=== PATIENT | male | born 1995 | race Asian ===

== ENCOUNTER 2018-06-06 15:34 | Emergency (ER) | payer OTHER, MEDICAID, SELFPAY ==
[2018-06-06 16:10] VITALS: BP 133/71; PULSE 74; RESP 16; TEMP 37.3; O2SAT 98; BMI 30.4
[2018-06-06 17:12] LABS: Add Manual Diff / Slide Review NO; Basophils Absolute Auto 100 /uL (0-100); Basophils Percent Auto 0.5 % (0-2); Eosinophils Absolute Auto 500 /uL (0-450); Hematocrit 45.7 % (41-53); Hemoglobin 14.5 g/dL (13.5-17.5); Lymphocytes Absolute Auto 1200 /uL (1100-4500); Lymphocytes Percent Auto 9.7 % (25-40); Mean Corpuscular HGB Conc 31.7 % (30-36); Mean Corpuscular Hemoglobin 22.9 PG (26-34); Mean Corpuscular Volume 72.3 fL (80-100); Monocytes Absolute Auto 900 /uL (0-900); Monocytes Percent Auto 7.4 % (3-14); Neutrophils Absolute Auto 9600 /uL (1500-7000); Neutrophils Percent Auto 78.4 % (50-75); Platelet Count 274 X10^3/uL (150-400); Red Blood Cell Count 6.33 X10^6/uL (4.5-5.9); Red Cell Distribution Width 14.1 % (11.6-14.8); White Blood Cell Count 12.3 X10^3/uL (4.5-11.0)
[2018-06-06 17:22] LABS: Blood Urea Nitrogen 12 mg/dL (9-20); Calcium 9.7 mg/dL (8.4-10.2); Carbon Dioxide 26 mmol/L (22-32); Chloride 102 mmol/L (98-107); Estimated Glomerular Filt Rate > 60.0 mL/min (>60); Glucose 104 mg/dL (70-100); HEMOLYSIS < 15 (0-50); Sodium 142 mmol/L (137-145)
--- NOTE | 2018-06-06 18:18 | ED.SKABFB ---
HPI - Skin/Abscess/Foreign Bdy <HARPER Patterson - Last Filed: 06/06/18 21:37> General Chief complaint: Skin/Abscess/Foreign Body Stated complaint: thinks he was bit by a spider left hip Time Seen by Provider: 06/06/18 17:58 Source: patient Mode of arrival: ambulatory Limitations: no limitations History of Present Illness HPI narrative: 22-year-old healthy male that is a everyday smoker here for complaint of pain and swelling into his left hip area over the past couple of days. He states that he believes that he was bitten by a spider. He denies any drainage from the area. He does state that he did try to get it to drain however was unsuccessful. No known fevers. No trauma to the area unknown. He denies any history of MRSA. No other concerns or complaints at this timeframe. MD complaint: abscess/boil Related Data Previous Rx's Medication Instructions Recorded clindamycin HCl 300 mg PO QID #27 cap 06/06/18 Allergies Allergy/AdvReac Type Severity Reaction Status Date / Time No Known Drug Allergies Allergy Verified 06/06/18 16:10 Review of Systems <HARPER Patterson - Last Filed: 06/06/18 21:37> Constitutional Denies chills, Denies fever(s), Denies lethargy and Denies weakness Eyes Denies change in vision, Denies eye discharge, Denies irritation and Denies loss of vision ENT Ears, Nose, Mouth, and Throat: Denies change in voice, Denies neck pain and Denies sore throat Cardiovascular Denies chest pain, Denies irregular heart rhythm, Denies lightheadedness, Denies palpitations, Denies dyspnea, Denies dyspnea on exertion and Denies orthopnea Respiratory Denies cough, Denies dyspnea, Denies dyspnea on exertion and Denies wheezing Gastrointestinal Gastrointestinal: Denies abdominal pain, Denies change in bowel habits, Denies diarrhea, Denies nausea and Denies vomiting Genitourinary Denies hematuria, Denies flank pain, Denies urinary incontinence and Denies urinary urgency Musculoskeletal Denies neck pain Integumentary/Breasts Comments: Spider bite/abscess to left hip area Neurologic Denies confusion, Denies loss of vision and Denies weakness Psychiatric Denies anxiety, Denies confusion, Denies depression, Denies homicidal ideation and Denies suicidal ideation Endocrine Denies palpitations Hematologic/Lymphatic Denies easy bruising Allergic/Immunologic Denies wheezing Exam <HARPER Patterson - Last Filed: 06/06/18 21:37> Initial Vital Signs Initial Vital Signs: Vital Signs Temperature 99.2 F 06/06/18 16:10 Pulse Rate 74 06/06/18 16:10 Respiratory Rate 16 06/06/18 16:10 Blood Pressure 133/71 06/06/18 16:10 Pulse Oximetry 98 06/06/18 16:10 Const General: cooperative and well developed Nutritional Appearance: well nourished Orientation: alert, awake, oriented x3 and not confused HENKY Mouth: oral mucosae normal, oropharynx normal and moist mucous membranes Eyes General: appearance normal, both eyes and all related structures Conjunctivae: conjunctivae normal Sclera: sclerae normal Pupils: PERRL EOM: EOM intact bilaterally Chest Chest: normal inspection of the chest Resp Effort & Inspection: normal respiratory effort, able to speak in complete sentences, no respiratory distress and no use of accessory muscles Auscultation: clear to auscultation bilaterally, no rales, no rhonchi and no wheezes Cardio Rate: regular rate Rhythm: regular rhythm Heart Sounds: no click, no gallops, no murmurs and no rubs Pulses: normal peripheral pulses Neuro General: alert, oriented x3, gait normal and no focal motor deficits Speech: speech normal Extrem Other: 2 cm and 3 cm area of swelling and slight erythema to the left hip area. Positive induration and fluctuance. Distal CMS is intact <Devendra Starr DO - Last Filed: 06/07/18 00:31> Initial Vital Signs Initial Vital Signs: Vital Signs Temperature 99.2 F 06/06/18 16:10 Pulse Rate 74 06/06/18 16:10 Respiratory Rate 16 06/06/18 16:10 Blood Pressure 133/71 06/06/18 16:10 Pulse Oximetry 98 06/06/18 16:10 Procedures <HARPER Patterson - Last Filed: 06/06/18 21:37> Abscess I/D Site: other (Left hip) Side (if applicable): left Local Anesthetic: lidocaine 1% Amount of anesthesia used (mL): 3 Amount of fluid expressed (mL): 6 Irrigation: No Packing used?: none Course <HARPER Patterson Last Filed: 06/06/18 21:37> Orders Ordered: ED Orders 06/06/18 16:45 Basic Metabolic Panel Stat Complete Blood Count AUTO DIFF Stat 06/06/18 19:15 Wound Culture and Gram Stain Stat Discontinued Medications Clindamycin HCl (Cleocin) 300 mg PO NOW ONE Stop: 06/06/18 18:46 Last Admin: 06/06/18 19:15 Dose: 300 mg Ibuprofen (Advil) 400 mg PO NOW ONE Stop: 06/06/18 18:45 Last Admin: 06/06/18 19:16 Dose: 400 mg Vital Signs - 8 hr 06/06/18 18:21 06/06/18 19:20 Temperature 99.3 F Pulse Rate 90 73 Respiratory Rate 21 18 Blood Pressure [Left Arm] 131/68 101/61 Pulse Oximetry 100 99 <Devendra Starr DO - Last Filed: 06/07/18 00:31> Orders Ordered: ED Orders 06/06/18 16:45 Basic Metabolic Panel Stat Complete Blood Count AUTO DIFF Stat 06/06/18 19:15 Wound Culture and Gram Stain Stat Discontinued Medications Clindamycin HCl (Cleocin) 300 mg PO NOW ONE Stop: 06/06/18 18:46 Last Admin: 06/06/18 19:15 Dose: 300 mg Ibuprofen (Advil) 400 mg PO NOW ONE Stop: 06/06/18 18:45 Last Admin: 06/06/18 19:16 Dose: 400 mg Vital Signs - 8 hr 06/06/18 18:21 06/06/18 19:20 Temperature 99.3 F Pulse Rate 90 73 Respiratory Rate 21 18 Blood Pressure [Left Arm] 131/68 101/61 Pulse Oximetry 100 99 MDM - Skin/Abscess/Foreign Bdy <HARPER Patterson - Last Filed: 06/06/18 21:37> Lab Data Result diagrams: 06/06/18 16:45 06/06/18 16:45 Lab Results 06/06/18 06/06/18 Range/Units 16:45 16:45 WBC 12.3 H (4.5-11.0) X10^3/uL RBC 6.33 H (4.5-5.9) X10^6/uL Hgb 14.5 (13.5-17.5) g/dL Hct 45.7 (41-53) % MCV 72.3 L (80-100) fL MCH 22.9 L (26-34) PG MCHC 31.7 (30-36) % RDW 14.1 (11.6-14.8) % Plt Count 274 (150-400) X10^3/uL Neut % (Auto) 78.4 H (50-75) % Lymph % (Auto) 9.7 L (25-40) % [place] % (Auto) 7.4 (3-14) % Eos % (Auto) 4.0 (2-4) % Baso % (Auto) 0.5 (0-2) % Neut # (Auto) 9600 H (6949-3759) /uL Lymph # (Auto) 1200 (3355-0486) /uL [place] # (Auto) 900 (0-900) /uL Eos # (Auto) 500 H (0-450) /uL Baso # (Auto) 100 (0-100) /uL Sodium 142 (137-145) mmol/L Potassium 4.0 (3.4-5.1) mmol/L Chloride 102 (98-107) mmol/L Carbon Dioxide 26 (22-32) mmol/L BUN 12 (9-20) mg/dL Creatinine 0.80 (0.66-1.25) mg/dL Estimated GFR > 60.0 (>60) mL/min BUN/Creatinine Ratio 15.0 (6-22) Glucose 104 H (70-100) mg/dL Calcium 9.7 (8.4-10.2) mg/dL MDM Narrative Medical decision making narrative: I and D was completed to 2 small abscesses to the left hip area. Wound culture was obtained and is pending. He is placed on clindamycin. [id number] ibuprofen as needed for any discomfort. Follow up with primary care provider later this week for re-evaluation. Dress wound daily with bacitracin and dressing until healed. For any worsening symptoms return to the emergency room. <Devendra Starr DO - Last Filed: 06/07/18 00:31> Lab Data Lab Results 06/06/18 06/06/18 Range/Units 16:45 16:45 WBC 12.3 H (4.5-11.0) X10^3/uL RBC 6.33 H (4.5-5.9) X10^6/uL Hgb 14.5 (13.5-17.5) g/dL Hct 45.7 (41-53) % MCV 72.3 L (80-100) fL MCH 22.9 L (26-34) PG MCHC 31.7 (30-36) % RDW 14.1 (11.6-14.8) % Plt Count 274 (150-400) X10^3/uL Neut % (Auto) 78.4 H (50-75) % Lymph % (Auto) 9.7 L (25-40) % [place] % (Auto) 7.4 (3-14) % Eos % (Auto) 4.0 (2-4) % Baso % (Auto) 0.5 (0-2) % Neut # (Auto) 9600 H (1959-2766) /uL Lymph # (Auto) 1200 (7346-9000) /uL [place] # (Auto) 900 (0-900) /uL Eos # (Auto) 500 H (0-450) /uL Baso # (Auto) 100 (0-100) /uL Sodium 142 (137-145) mmol/L Potassium 4.0 (3.4-5.1) mmol/L Chloride 102 (98-107) mmol/L Carbon Dioxide 26 (22-32) mmol/L BUN 12 (9-20) mg/dL Creatinine 0.80 (0.66-1.25) mg/dL Estimated GFR > 60.0 (>60) mL/min BUN/Creatinine Ratio 15.0 (6-22) Glucose 104 H (70-100) mg/dL Calcium 9.7 (8.4-10.2) mg/dL Discharge Plan Departure Patient Disposition: Home Clinical Impression: Abscess of skin or subcutaneous tissue Discharge Date/Time: 06/06/18 19:32 Interventions: ED Discharge Assessment Last Done: 06/06/18 19:32 Instructions: DI for Skin Abscess Activity Restrictions/Additional Instructions: Abscesses to the left hip area was incised and drained today. You are placed on antibiotic to cover for the infection and use as directed. Use [id number] ibuprofen as needed for any discomfort. Follow up with primary care provider later this week for re-evaluation. For any worsening symptoms return to the emergency room. Prescriptions: New clindamycin HCl 300 mg capsule 300 mg PO QID Qty: 27 RF: 0 Referrals: [facility] [Provider Group] Stand Alone Forms: Work Release Note <Devendra Starr, DO - Last Filed: 06/07/18 00:31> Cosign ED Attending Giorgio Attestation: I was immediately available in the department for consultation. Documentation has been reviewed. I agree with assessment and plan.
[2018-06-06 18:21] VITALS: BP 131/68; PULSE 90; RESP 21; TEMP 37.4; O2SAT 100
[2018-06-06] MEDS: CLINDAMYCIN 150 MG CAPSULE 300 MG PO (19:15)
[2018-06-06] MEDS: IBUPROFEN 400 MG TABLET PO (19:16)
[2018-06-06 19:20] VITALS: BP 101/61; PULSE 73; RESP 18; O2SAT 99
== END 2018-06-06 19:32 | disposition home or self-care (01) ==
PROVIDERS: Emergency Medicine; Emergency Provider Nurse Practitioner Family
DX: L02.91 Cutaneous abscess, unspecified (principal)
CPT/HCPCS: 10060; 36591; 80048; 85025; 87070; 87075; 87077; 87147; 87186; 87205; 99282; 99283

== ENCOUNTER 2018-06-17 17:18 | Emergency (ER) | payer OTHER, MEDICAID, SELFPAY ==
[2018-06-17 17:33] VITALS: BP 126/74; PULSE 81; RESP 14; TEMP 36.1; O2SAT 95; BMI 29.5
--- NOTE | 2018-06-17 20:30 | ED.SKABFB ---
HPI - Skin/Abscess/Foreign Bdy <Stephanie Gao PA-C - Last Filed: 06/17/18 22:33> General Chief complaint: Skin/Abscess/Foreign Body Stated complaint: cyst under left arm, cough Time Seen by Provider: 06/17/18 20:17 Source: patient Mode of arrival: ambulatory Limitations: no limitations History of Present Illness HPI narrative: This 22-year-old male states that he returns here due to possible abscess or skin infection. He was seen here 10 days ago for left axillary abscess. He states that has actually gotten smaller. He has noted a new tender lump on the right wrist, several spots on the right goodrich, and in the right axilla since then. He states that they scab over but initially appear as a meza. He states that he has not had any new fever. He states he has had some wheeze an asthma symptoms recently and has been using albuterol. He denies any acute upper respiratory symptoms at all such as new cough or cold symptoms. He denies any drug use. He states he came back in because he did not get the antibiotic after last visit (could not afford it), however now obtaining insurance and thinks he might need to be on 1 due to developing new lesions. Related Data Previous Rx's Medication Instructions Recorded clindamycin HCl 300 mg PO QID #27 cap 06/06/18 albuterol sulfate 2 inhalation INHALATION Q4-6H PRN 06/17/18 #8 gram sulfamethoxazole-trimethoprim 1 tab PO Q12H #20 tab 06/17/18 Allergies Allergy/AdvReac Type Severity Reaction Status Date / Time No Known Drug Allergies Allergy Verified 06/17/18 17:33 Review of Systems <Stephanie Gao PA-C - Last Filed: 06/17/18 22:33> Review of Systems ROS Unobtainable: All systems reviewed & are unremarkable except as noted in HPI and below PFSH <Stephanie Gao PA-C - Last Filed: 06/17/18 22:33> Medical History Asthma (Chronic) No pertinent family history (Chronic) Surgical History No pertinent past surgical history (Chronic) Social History Smoking Status: Current every day smoker additional social history: Denies any drug use Social History Smoking Status: Current every day smoker additional social history: Denies any drug use Exam <Stephanie Gao PA-C - Last Filed: 06/17/18 22:33> Narrative Exam Narrative: GENERAL APPEARANCE: Patient is sleeping comfortably, in no distress. LUNGS: Generalized expiratory wheeze, no crackles, no cough on exam, good AE, speaks easily in complete sentences HEART: Rate and rhythm regular without murmur, normal S1 and S2, no S3 or S4. DERMATOLOGIC: Left axilla there is a small skin tag with a little bit of underlying induration, no pustules or papules. Right axilla there is a small pustule, no erythema. Right wrist there is a dry papular without erythema or fluctuance. There are several scabbed papules on the right goodrich, and 1 with a pustule. These have surrounding erythema at the borders, otherwise no skin erythema. Goodrich lesions are tender. Initial Vital Signs Initial Vital Signs: Vital Signs Temperature 97.0 F L 06/17/18 17:33 Pulse Rate 81 06/17/18 17:33 Respiratory Rate 14 06/17/18 17:33 Blood Pressure 126/74 06/17/18 17:33 Pulse Oximetry 95 06/17/18 17:33 <DO Keila Marinelli Last Filed: 06/18/18 02:34> Initial Vital Signs Initial Vital Signs: Vital Signs Temperature 97.0 F L 06/17/18 17:33 Pulse Rate 81 06/17/18 17:33 Respiratory Rate 14 06/17/18 17:33 Blood Pressure 126/74 06/17/18 17:33 Pulse Oximetry 95 06/17/18 17:33 Course <Stephanie Gao PA-C - Last Filed: 06/17/18 22:33> Orders Ordered: Discontinued Medications Trimethoprim/Sulfamethoxazole (Bactrim Ds) 1 tab PO NOW ONE Stop: 06/17/18 20:40 Last Admin: 06/17/18 20:40 Dose: 1 tab Vital Signs - 8 hr 06/17/18 20:40 06/17/18 20:56 06/17/18 21:05 Temperature 97.0 F L 97.0 F L Pulse Rate 86 86 86 Respiratory Rate 15 15 15 Blood Pressure 126/74 126/74 Blood Pressure [Right Arm] 126/67 Pulse Oximetry 97 97 97 <Sheila Miller DO - Last Filed: 06/18/18 02:34> Orders Ordered: Discontinued Medications Trimethoprim/Sulfamethoxazole (Bactrim Ds) 1 tab PO NOW ONE Stop: 06/17/18 20:40 Last Admin: 06/17/18 20:40 Dose: 1 tab Vital Signs - 8 hr 06/17/18 20:40 06/17/18 20:56 06/17/18 21:05 Temperature 97.0 F L 97.0 F L Pulse Rate 86 86 86 Respiratory Rate 15 15 15 Blood Pressure 126/74 126/74 Blood Pressure [Right Arm] 126/67 Pulse Oximetry 97 97 97 Discharge Plan Departure Patient Disposition: Home Clinical Impression: Cellulitis Qualifiers: Site of cellulitis: extremity Site of cellulitis of extremity: lower extremity Laterality: right Qualified Code(s): L03.115 - Cellulitis of right lower limb Asthma Qualifiers: Asthma severity: mild Asthma persistence: intermittent Asthma complication type: unspecified Qualified Code(s): J45.20 - Mild intermittent asthma, uncomplicated Discharge Date/Time: 06/17/18 21:12 Interventions: ED Discharge Assessment Last Done: 06/17/18 21:10 Instructions: DI for Cellulitis -- Adult, DI for Asthma -- Adult Activity Restrictions/Additional Instructions: You appear to have a skin infection that is susceptible to multiple antibiotics including 1 you have started here this evening. 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 Please continue this. This does not appear to need any incision or drainage this evening, however you should follow-up with a primary care provider in a few days for recheck. Please call your insurance 1st thing in the morning and let them know you were seen in the emergency room and need a referral to a local PCP you can see early next week for follow-up. ([facility] in [facility] may take your insurance and new patients). Please monitor the infection, avoid touching it with your fingers, keep the skin clean. Return if you have any acutely worsening symptoms i.e. rapidly spreading redness, increased pain or swelling or high fever. I have also sent a prescription for inhaler to the pharmacy for you Prescriptions: New sulfamethoxazole-trimethoprim 800-160 mg tablet 1 tab PO Q12H Qty: 20 RF: 0 albuterol sulfate 90 mcg/actuation HFA aerosol inhaler 2 inhalation INHALATION Q4-6H PRN (Reason: asthma) Qty: 8 RF: 0 No Action clindamycin HCl 300 mg capsule 300 mg PO QID Qty: 27 RF: 0 <Sheila Miller DO - Last Filed: 06/18/18 02:34> Cosign ED Attending Giorgio Attestation: I was immediately available in the department for consultation. Documentation has been reviewed. I agree with assessment and plan.
[2018-06-17 20:40] VITALS: BP 126/74; PULSE 86; RESP 15; TEMP 36.1; O2SAT 97; BMI 29.5
[2018-06-17] MEDS: TRIMETH/SULFA 160/800 (DS) TABLET 1 TAB PO (20:40)
[2018-06-17 20:56] VITALS: BP 126/67; PULSE 86; RESP 15; O2SAT 97
[2018-06-17 21:05] VITALS: BP 126/74; PULSE 86; RESP 15; TEMP 36.1; O2SAT 97; BMI 29.5
== END 2018-06-17 21:12 | disposition home or self-care (01) ==
PROVIDERS: Emergency Provider Internal Medicine
DX: L03.115 Cellulitis of right lower limb (principal); J45.20 Mild intermittent asthma, uncomplicated
CPT/HCPCS: 99282; 99283